=== PATIENT | female | born 1975 | race Caucasian/White ===

== ENCOUNTER 2017-12-25 08:22 | Emergency (ER) | payer OTHER ==
--- NOTE | 2017-12-25 08:42 | EDPHY ---
H & P Time Seen by Provider: 12/25/17 08:27 HPI/ROS: CHIEF COMPLAINT: Left thumb pain HISTORY OF PRESENT ILLNESS: Patient complaining of left thumb pain. She is left-hand dominant. She works part-time coaching gymnastics and approximately 1 month ago was helping an 11-year-old do a vault maneuver. She ended up taking a significant amount of the [employer] weight to her left hand which bent her thumb back and caused significant pain. She did not fall on to hand. She has had pain and swelling to that thumb ever since. It was starting to get a little bit better but over the last few days is now worse. She denies numbness or tingling but has difficulty picking up a bottle of water. Denies other injuries. REVIEW OF SYSTEMS: Negative except per HPI. General Appearance: Alert, no distress. Eyes: Pupils equal and round no icterus Respiratory: No respiratory distress Neurological: Awake, alert, no focal deficits. Skin: Warm and dry, no rashes. Musculoskeletal: Mild swelling to base of thumb noted. Tenderness to palpation on the ulnar side of the MCP joint. Normal sensation and circulation distally. Laxity difficult to assess secondary to pain. Psychiatric: Patient is oriented X 3, there is no agitation. Medical/surgical history: Anti cardiolipin antibody syndrome, PE, DVT. No longer on anti coagulation medications. Takes aspirin. Social history: Nonsmoker, no drugs. Occasional alcohol. Smoking Status: Never smoked Constitutional: Initial Vital Signs Temperature (C) 36.6 C 12/25/17 08:26 Heart Rate 74 12/25/17 08:26 Respiratory Rate 20 12/25/17 08:26 Blood Pressure 135/78 H 12/25/17 08:26 O2 Sat (%) 96 12/25/17 08:26 O2 Delivery Mode Room Air Allergies/Adverse Reactions: cephalexin [From Keflex] Allergy (Verified 12/25/17 08:26) Home Medications: Medication Instructions Recorded NK [No Known Home Meds] 12/25/17 Medical Decision Making - Diagnostics Imaging Results: X-ray of the left hand and thumb shows no fracture. Imaging: I viewed and interpreted images myself ED Course/Re-evaluation: I reviewed placement of the thumb spica splint. Distal CMS intact. Differential Diagnosis: Differential diagnosis includes but is not limited to ulnar collateral ligamentous injury, fracture, dislocation, contusion. On my evaluation history and physical were consistent with ulnar collateral ligament injury. Will be placed in a thumb spica splint and referred to hand surgery. Strongly recommended she follow up with surgeon for definitive care as she is presenting 1 month after her original injury and still with considerable pain. No evidence of fracture, neurovascular compromise. Stable for discharge. Departure - Departure Clinical Impression: Injury of ulnar collateral ligament of left wrist Qualifiers: Encounter type: initial encounter Qualified Code(s): S66.802A - Unspecified injury of other specified muscles, fascia and tendons at wrist and hand level, left hand, initial encounter Condition: Good Instructions: Skier's Thumb (ED) Additional Instructions: Where splint as discussed at all times other than shower. Call Dr. Carrera office 1st thing on Tuesday morning for follow-up next week. Ice and ibuprofen for pain. Referrals: Cristhian Carrera MD [Medical Doctor] - As per Instructions
[2017-12-25 09:28] VITALS: BP 112/62
== END 2017-12-25 09:26 | disposition home or self-care (01) ==
LOC: CED 08:22
DX: S66.802A Unspecified injury of other specified muscles, fascia and tendons at wrist and hand level, left hand, initial encounter (principal); X50.9XXA Other and unspecified overexertion or strenuous movements or postures, initial encounter
CPT/HCPCS: 73140-PO; L3807